=== PATIENT | female | born 1990 | race Asian ===

== ENCOUNTER 2018-08-29 19:01 | Inpatient (IN) | payer OTHER ==
[~2018-08-29] VITALS: Ht 149.9 cm; Wt 54.0 kg
--- OUTSIDE RECORDS SUMMARY | 2018-08-29 19:06 | XMS REPORT ---
Author Author JOHN PENNINGTON [facility] Address [address] [place] [address] Care Team Providers Care Public Administration Teacher Name Role Phone JOHN PENNIGNTON Unavailable PROBLEMS No Known Problems ALLERGIES No Known Allergies ENCOUNTERS Encounter Location Date Diagnosis [facility] [id number] [place] [phone] Feb, [facility] [id number] [place] [phone] Feb, care in first trimester Z34.91 ; 8 weeks gestation of Z3A.08 and First trimester bleeding O20.9 [facility] [id number] [place] [phone] Feb, [facility] [id number] [place] [phone] Feb, [facility] [id number] [place] [phone] Feb, Vomiting during O21.9 [facility] [id number] [place] [phone] Feb, [facility] [id number] [place] [phone] Feb, [facility] [id number] [place] [phone] Feb, [facility] [id number] [place] [phone] Feb, [facility] [address] [address] Jan, [facility] [id number] [address] Jan, [facility] [address] [facility] [id number] [place] [address] Jan, [facility] [address] [facility] [id number] [place] [address] Jan, Vomiting during O21.9 IMMUNIZATIONS Vaccine Route Administration Date Status PHENERGAN 50MG/ML IV Intravenous Feb 11, 2018 Administered SOCIAL HISTORY Never Assessed REASON FOR VISIT Nausea/vomiting--tcuppettRN PLAN OF CARE Activity Details Follow Up 2 - 3 Days Reason:scheduled f/u w Bryce Pending Test UA LONG DIP (IN HOUSE) VITAL SIGNS Height 60 in 2018-02-11 Weight 107.4 lbs 2018-02-11 Temperature 97.6 degrees Fahrenheit 2018-02-11 Heart Rate 72 bpm 2018-02-11 Respiratory Rate 18 2018-02-11 BMI 20.97 kg/m2 2018-02-11 Blood pressure systolic 100 mmHg 2018-02-11 Blood pressure diastolic 68 mmHg 2018-02-11 MEDICATIONS Unknown Medications RESULTS No Results PROCEDURES Procedure Date Ordered Result Body Site URINALYSIS, AUTO, W/O SCOPE Feb 11, 2018 URINE CULTURE/COLONY COUNT Feb 11, 2018 OB US < 14 WKS, SINGLE FETUS Feb 11, 2018 THER/PROPH/DIAG INJ, IV PUSH Feb 11, 2018 HYDRATION IV INFUSION, INIT Feb 11, 2018 THER/PROPH/DIAG INJ, SC/IM Feb 11, 2018 PHENERGAN 50MG/ML Feb 11, 2018 INSTRUCTIONS MEDICATIONS ADMINISTERED No Known Medications MEDICAL (GENERAL) HISTORY Type Description Date Surgical History No know Surgical history Hospitalization History Low blood pressure 2012
--- OUTSIDE RECORDS SUMMARY | 2018-08-29 19:06 | XMS REPORT ---
Author Author JEN AKIRA [facility] Address [address] [place] [address] Care Team Providers Care Healthcare Administrative Assistant Name Role Phone JENTONI HERNANDEZHANY Unavailable PROBLEMS No Known Problems ALLERGIES No Information ENCOUNTERS Encounter Location Date Diagnosis [facility] [id number] [place] [phone] Feb, [facility] [id number] [place] [phone] Feb, [facility] [id number] [place] [phone] Feb, [facility] [id number] [place] [phone] Feb, [facility] [id number] [place] [phone] Feb, [facility] [id number] [place] [phone] Feb, [facility] [id number] [place] [phone] Jan, [facility] [id number] [place] [phone] Jan, [facility] [address] [place] [phone] Jan, [facility] [id number] [place] [phone] Jan, Vomiting during O21.9 IMMUNIZATIONS No Known Immunizations SOCIAL HISTORY Never Assessed REASON FOR VISIT OB Questions PLAN OF CARE VITAL SIGNS MEDICATIONS Unknown Medications RESULTS No Results PROCEDURES No Known procedures INSTRUCTIONS MEDICATIONS ADMINISTERED No Known Medications MEDICAL (GENERAL) HISTORY Type Description Date Surgical History No know Surgical history Hospitalization History Low blood pressure 2012
--- OUTSIDE RECORDS SUMMARY | 2018-08-29 19:06 | XMS REPORT ---
Author Author JEN AKIRA [facility] Address [address] [place] [address] Care Team Providers Care Air Cargo Specialist Name Role Phone JEN AKIRA Unavailable PROBLEMS No Known Problems ALLERGIES No Known Allergies ENCOUNTERS Encounter Location Date Diagnosis [facility] [id number] [place] [phone] Feb, [facility] [id number] [place] [address] Feb, care in first trimester Z34.91 ; 8 weeks gestation of Z3A.08 and First trimester bleeding O20.9 [facility] [id number] [place] [phone] Feb, [facility] [id number] [place] [phone] Feb, [facility] [id number] [place] [phone] Feb, Vomiting during O21.9 [facility] [id number] [place] [phone] Feb, [facility] [id number] [place] [phone] Feb, [facility] [id number] [place] [phone] Feb, [facility] [id number] [place] [phone] Feb, [facility] [address] [place] [phone] Jan, [facility] [id number] [address] Jan, [facility] [address] [facility] [id number] [address] Jan, [facility] [address] [facility] [id number] [address] Jan, Vomiting during O21.9 IMMUNIZATIONS No Known Immunizations SOCIAL HISTORY Never Assessed REASON FOR VISIT n/v followup. ob urine dip in first trimester--tcuppettRN PLAN OF CARE Activity Details Follow Up 4 Weeks Reason: Pending Test GC/CHLAM PROBE (STATE) Pending Test SYPHILIS (STATE) Pending Test HIV (STATE) Pending Test HEP B SURFACE ANTIGEN (STATE) Pending Test CBC Pending Test BLOOD TPYE/RH FACTOR Pending Test ANTIBODY SCREEN Pending Test TSH Pending Test RUBELLA IMMUNE STATUS Pending Test CULTURE, URINE Pending Test CULTURE, GENITAL Pending Test PAP REFLEX TO HPV IF ASCUS VITAL SIGNS Height 60 in 2018-02-15 Weight 107.3 lbs 2018-02-15 Temperature 97.9 degrees Fahrenheit 2018-02-15 Heart Rate 70 bpm 2018-02-15 Respiratory Rate 16 2018-02-15 BMI 20.956 kg/m2 2018-02-15 Blood pressure systolic 106 mmHg 2018-02-15 Blood pressure diastolic 80 mmHg 2018-02-15 MEDICATIONS Medication Instructions Dosage Frequency Start Date End Date Duration Status Promethazine HCl 25 MG Orally every 4 hrs 1 tablet as needed 4h Feb, Active Vitamin 27-0.8 MG Orally Once a day 1 tablet 24h 30 day(s) Active RESULTS Name Result Date Reference Range TRICHOMONAS (IN HOUSE) 2018-02-15 TRICHOMONAS negative Control + Lot # [id number] Exp date 10/2018 UA LONG DIP (IN HOUSE) 2018-02-15 Lot # Exp date Clarity yellow Color sl cloudy Odor slight GLU neg JOSH 1+ KET 4+ SG 1.025 BLO negative pH 6.5 Protein trace URO 0.2 NIT negative DORA trace Lot # Exp date BACTERIAL VAGINOSIS (IN HOUSE) 2018-02-15 RESULTS Negative Control + Lot # [id number] Exp date 09/2018 PROCEDURES Procedure Date Ordered Result Body Site BLOOD TYPING, ABO Feb 15, 2018 BLOOD TYPING, RH (D) Feb 15, 2018 COMPLETE CBC W/AUTO DIFF WBC Feb 15, 2018 Bacterial Vaginosis In House Feb 15, 2018 TRICHOMONAS ASSAY W/OPTIC Feb 15, 2018 RBC ANTIBODY SCREEN Feb 15, 2018 SPECIMEN HANDLING Feb 15, 2018 ASSAY THYROID STIM HORMONE Feb 15, 2018 RUBELLA ANTIBODY Feb 15, 2018 No Charge Feb 15, 2018 URINALYSIS, AUTO, W/O SCOPE Feb 15, 2018 URINE CULTURE/COLONY COUNT Feb 15, 2018 CULTURE, BACTERIA, OTHER Feb 15, 2018 VENIPUNCT, ROUTINE* Feb 15, 2018 INSTRUCTIONS MEDICATIONS ADMINISTERED No Known Medications MEDICAL (GENERAL) HISTORY Type Description Date Surgical History No know Surgical history Hospitalization History Low blood pressure 2012
--- OUTSIDE RECORDS SUMMARY | 2018-08-29 19:06 | XMS REPORT ---
Author Author JEN AKIRA [facility] Address [address] [place] [address] Care Team Providers Care Film Producer Name Role Phone JENTONIAKIRA Unavailable PROBLEMS No Known Problems ALLERGIES No Information ENCOUNTERS Encounter Location Date Diagnosis [facility] [id number] [place] [phone] Feb, [facility] [id number] [place] [phone] Feb, [facility] [id number] [place] [phone] Feb, [facility] [id number] [place] [phone] Feb, [facility] [id number] [place] [phone] Feb, [facility] [id number] [place] [phone] Feb, [facility] [id number] [place] [phone] Jan, [facility] [id number] [place] [phone] Jan, [facility] [address] [place] [phone] Jan, [facility] [id number] [place] [phone] Jan, Vomiting during O21.9 IMMUNIZATIONS No Known Immunizations SOCIAL HISTORY Never Assessed REASON FOR VISIT OBHX PLAN OF CARE VITAL SIGNS MEDICATIONS Unknown Medications RESULTS No Results PROCEDURES No Known procedures INSTRUCTIONS MEDICATIONS ADMINISTERED No Known Medications MEDICAL (GENERAL) HISTORY Type Description Date Surgical History No know Surgical history Hospitalization History Low blood pressure 2012
--- OUTSIDE RECORDS SUMMARY | 2018-08-29 19:06 | XMS REPORT ---
Author Author JOHN PENNINGTON [facility] Address [address] [place] [address] Care Team Providers Care Laboratory Worker Name Role Phone JOHN PENNINGTON Unavailable PROBLEMS No Known Problems ALLERGIES No Information ENCOUNTERS Encounter Location Date Diagnosis [facility] [id number] [place] [phone] Feb, [facility] [id number] [place] [phone] Feb, [facility] [id number] [place] [phone] Feb, [facility] [id number] [place] [phone] Feb, [facility] [id number] [place] [phone] Feb, Vomiting during O21.9 [facility] [id number] [place] [phone] Feb, [facility] [id number] [place] [phone] Feb, [facility] [id number] [place] [phone] Feb, [facility] [id number] [place] [phone] Feb, [facility] [id number] [place] [phone] Jan, [facility] [id number] [place] [phone] Jan, [facility] [address] [facility] [id number] [place] [address] Jan, [facility] [address] [facility] [id number] [place] [address] Jan, Vomiting during O21.9 IMMUNIZATIONS No Known Immunizations SOCIAL HISTORY Never Assessed REASON FOR VISIT After Hours Clinical Advice PLAN OF CARE VITAL SIGNS MEDICATIONS Unknown Medications RESULTS No Results PROCEDURES No Known procedures INSTRUCTIONS MEDICATIONS ADMINISTERED No Known Medications MEDICAL (GENERAL) HISTORY Type Description Date Surgical History No know Surgical history Hospitalization History Low blood pressure 2012
--- OUTSIDE RECORDS SUMMARY | 2018-08-29 19:06 | XMS REPORT ---
Author Author JEN AKIRA [facility] Address [address] [place] [address] Care Team Providers Care Fuel Truck Driver Name Role Phone JEN AKIRA Unavailable PROBLEMS No Known Problems ALLERGIES No Information ENCOUNTERS Encounter Location Date Diagnosis [facility] [id number] [place] [phone] Feb, [facility] [id number] [place] [phone] Feb, [facility] [id number] [place] [phone] Feb, [facility] [id number] [place] [phone] Feb, Vomiting during O21.9 [facility] [id number] [place] [phone] Feb, [facility] [id number] [place] [phone] Feb, [facility] [id number] [place] [phone] Feb, [facility] [id number] [place] [phone] Feb, [facility] [id number] [place] [phone] Jan, [facility] [id number] [place] [phone] Jan, [facility] [id number] [place] [phone] Jan, [facility] [address] [facility] [id number] [place] [address] Jan, Vomiting during O21.9 IMMUNIZATIONS No Known Immunizations SOCIAL HISTORY Never Assessed REASON FOR VISIT PLAN OF CARE VITAL SIGNS MEDICATIONS Medication Instructions Dosage Frequency Start Date End Date Duration Status Promethazine HCl 25 MG Orally every 4 hrs 1 tablet as needed 4h Feb, Active RESULTS No Results PROCEDURES No Known procedures INSTRUCTIONS MEDICATIONS ADMINISTERED No Known Medications MEDICAL (GENERAL) HISTORY Type Description Date Surgical History No know Surgical history Hospitalization History Low blood pressure 2012
--- OUTSIDE RECORDS SUMMARY | 2018-08-29 19:06 | XMS REPORT ---
Author Author RONEL STROUD Organization [facility] Address [address] [place] [address] Care Team Providers Care Medicine Technologist Name Role Phone RONEL STROUD Unavailable PROBLEMS No Known Problems ALLERGIES No Information ENCOUNTERS Encounter Location Date Diagnosis [facility] [id number] [place] [phone] Feb, [facility] [address] [phone] Feb, [facility] [address] [phone] Feb, [facility] [id number] [place] [phone] Feb, [facility] [id number] [place] [phone] Feb, [facility] [id number] [place] [phone] Feb, [facility] [id number] [place] [phone] Jan, [facility] [id number] [place] [phone] Jan, [facility] [id number] [place] [phone] Jan, [facility] [id number] [place] [phone] Jan, Vomiting during O21.9 IMMUNIZATIONS No Known Immunizations SOCIAL HISTORY Never Assessed REASON FOR VISIT work release PLAN OF CARE VITAL SIGNS MEDICATIONS Unknown Medications RESULTS No Results PROCEDURES No Known procedures INSTRUCTIONS MEDICATIONS ADMINISTERED No Known Medications MEDICAL (GENERAL) HISTORY Type Description Date Surgical History No know Surgical history Hospitalization History Low blood pressure 2012
--- OUTSIDE RECORDS SUMMARY | 2018-08-29 19:06 | XMS REPORT ---
Author Author RONEL STROUD Organization [facility] Address [address] [place] [address] Care Team Providers Care Academic Dean Name Role Phone RONEL STROUD Unavailable PROBLEMS No Known Problems ALLERGIES No Information ENCOUNTERS Encounter Location Date Diagnosis [facility] [id number] [place] [phone] Feb, [facility] [address] [phone] Feb, [facility] [address] [phone] Feb, [facility] [id number] [place] [phone] Feb, [facility] [id number] [place] [phone] Feb, [facility] [id number] [place] [phone] Feb, [facility] [id number] [place] [phone] Jan, [facility] [id number] [place] [phone] Jan, [facility] [id number] [place] [phone] Jan, [facility] [id number] [place] [phone] Jan, Vomiting during O21.9 IMMUNIZATIONS No Known Immunizations SOCIAL HISTORY Never Assessed REASON FOR VISIT paperwork PLAN OF CARE VITAL SIGNS MEDICATIONS Unknown Medications RESULTS No Results PROCEDURES No Known procedures INSTRUCTIONS MEDICATIONS ADMINISTERED No Known Medications MEDICAL (GENERAL) HISTORY Type Description Date Surgical History No know Surgical history Hospitalization History Low blood pressure 2012
--- OUTSIDE RECORDS SUMMARY | 2018-08-29 19:07 | XMS REPORT | Continuity of Care Document ---
Author Organization Unknown Address Unknown Allergies There is no data. Medications There is no data. Problems There is no data. Procedures There is no data. Results Test Result Range CMP - 02/02/18 12:30 GLUCOSE 88 mg/dL 65-99 UREA NITROGEN (BUN) 10 mg/dL 7-25 CREATININE 0.50 mg/dL 0.50-1.10 eGFR NON-AFR. [place] 133 mL/min/1.73m2 > OR=60 eGFR 154 mL/min/1.73m2 > OR=60 BUN/CREATININE RATIO NOT APPLICABLE (calc) 6-22 SODIUM 136 mmol/L 135-146 POTASSIUM 3.9 mmol/L 3.5-5.3 CHLORIDE 102 mmol/L 98-110 CARBON DIOXIDE 23 mmol/L 20-32 CALCIUM 9.3 mg/dL 8.6-10.2 PROTEIN, TOTAL 7.9 g/dL 6.1-8.1 ALBUMIN 4.4 g/dL 3.6-5.1 GLOBULIN 3.5 g/dL (calc) 1.9-3.7 ALBUMIN/GLOBULIN RATIO 1.3 (calc) 1.0-2.5 BILIRUBIN, TOTAL 0.3 mg/dL 0.2-1.2 ALKALINE PHOSPHATASE 83 U/L 33-115 AST 18 U/L 10-30 ALT 15 U/L 6-29 HCG, QUANTITATIVE - 02/02/18 12:30 [place] [address] mIU/mL NRG CULTURE, URINE - 02/11/18 15:28 CULTURE, URINE, ROUTINE SEE NOTE NRG CULTURE, GENITAL - 02/15/18 14:30 CULTURE, GENITAL SEE NOTE NRG SUREPATH PAP RFX HPV mRNA E6/E7 - 02/15/18 14:30 CLINICAL INFORMATION: NRG LMP: 11/15/2017 NRG PREV. PAP: NEVER NRG PREV. BX: NRG SOURCE: Cervix NRG STATEMENT OF ADEQUACY: NRG INTERPRETATION/RESULT: NRG PREFORMS LAMINATOR: NRG COMMENT NRG GLUCOSE ELIOT 1 HOUR - 06/22/18 15:30 GLUCOSE, POSTPRANDIAL/ 1 HOUR 100 mg/dL See Note: CBC - 06/22/18 15:30 WHITE BLOOD CELL COUNT 12.6 Thousand/uL 3.8-10.8 RED BLOOD CELL COUNT 3.45 Million/uL 3.80-5.10 HEMOGLOBIN 9.3 g/dL 11.7-15.5 HEMATOCRIT 28.2 % 35.0-45.0 MCV 81.7 fL 80.0-100.0 MCH 27.0 pg 27.0-33.0 MCHC 33.0 g/dL 32.0-36.0 RDW 13.0 % 11.0-15.0 PLATELET COUNT 407 Thousand/uL 140-400 MPV 9.5 fL 7.5-12.5 ABSOLUTE NEUTROPHILS 9841 cells/uL 9104-1573 ABSOLUTE LYMPHOCYTES 1928 cells/uL 850-3900 ABSOLUTE MONOCYTES 706 cells/uL 200-950 ABSOLUTE EOSINOPHILS 88 cells/uL 15-500 ABSOLUTE BASOPHILS 38 cells/uL 0-200 NEUTROPHILS 78.1 % NRG LYMPHOCYTES 15.3 % NRG MONOCYTES 5.6 % NRG EOSINOPHILS 0.7 % NRG BASOPHILS 0.3 % NRG BILE ACIDS, FRACTIONATED LCMS - 07/27/18 09:42 CHOLIC ACID 1.7 umol/L < OR=1.8 DEOXYCHOLIC ACID <0.5 umol/L < OR=2.4 CHENODEOXYCHOLIC ACID 0.7 umol/L < OR=3.1 TOTAL BILE ACIDS 2.4 umol/L < OR=6.8 LDH - 08/05/18 09:19 LD 127 U/L 100-200 GGT - 08/05/18 09:19 GGT 35 U/L 3-40 URIC ACID, SERUM - 08/05/18 09:19 URIC ACID 4.0 mg/dL 2.5-7.0 CBC - 08/05/18 09:19 WHITE BLOOD CELL COUNT 11.5 Thousand/uL 3.8-10.8 RED BLOOD CELL COUNT 3.85 Million/uL 3.80-5.10 HEMOGLOBIN 10.3 g/dL 11.7-15.5 HEMATOCRIT 32.0 % 35.0-45.0 MCV 83.1 fL 80.0-100.0 MCH 26.8 pg 27.0-33.0 MCHC 32.2 g/dL 32.0-36.0 RDW 18.1 % 11.0-15.0 PLATELET COUNT 382 Thousand/uL 140-400 MPV 9.7 fL 7.5-12.5 ABSOLUTE NEUTROPHILS 8763 cells/uL 9562-1712 ABSOLUTE LYMPHOCYTES 1967 cells/uL 850-3900 ABSOLUTE MONOCYTES 633 cells/uL 200-950 ABSOLUTE EOSINOPHILS 92 cells/uL 15-500 ABSOLUTE BASOPHILS 46 cells/uL 0-200 NEUTROPHILS 76.2 % NRG LYMPHOCYTES 17.1 % NRG MONOCYTES 5.5 % NRG EOSINOPHILS 0.8 % NRG BASOPHILS 0.4 % NRG BILE ACIDS, FRACTIONATED LCMS - 08/05/18 09:19 CHOLIC ACID 6.1 umol/L < OR=1.8 DEOXYCHOLIC ACID 0.6 umol/L < OR=2.4 CHENODEOXYCHOLIC ACID 1.5 umol/L < OR=3.1 TOTAL BILE ACIDS 8.2 umol/L < OR=6.8 CMP - 08/17/18 09:09 GLUCOSE 80 mg/dL 65-99 UREA NITROGEN (BUN) 6 mg/dL 7-25 CREATININE 0.46 mg/dL 0.50-1.10 eGFR NON-AFR. [place] 135 mL/min/1.73m2 > OR=60 eGFR 157 mL/min/1.73m2 > OR=60 BUN/CREATININE RATIO 13 (calc) 6-22 SODIUM 140 mmol/L 135-146 POTASSIUM 4.1 mmol/L 3.5-5.3 CHLORIDE 104 mmol/L 98-110 CARBON DIOXIDE 23 mmol/L 20-32 CALCIUM 8.9 mg/dL 8.6-10.2 PROTEIN, TOTAL 6.9 g/dL 6.1-8.1 ALBUMIN 3.6 g/dL 3.6-5.1 GLOBULIN 3.3 g/dL (calc) 1.9-3.7 ALBUMIN/GLOBULIN RATIO 1.1 (calc) 1.0-2.5 BILIRUBIN, TOTAL 0.2 mg/dL 0.2-1.2 ALKALINE PHOSPHATASE 190 U/L 33-115 AST 25 U/L 10-30 ALT 49 U/L 6-29 BILE ACIDS, FRACTIONATED LCMS - 08/17/18 09:09 CHOLIC ACID 0.5 umol/L < OR=1.8 DEOXYCHOLIC ACID <0.5 umol/L < OR=2.4 CHENODEOXYCHOLIC ACID 0.6 umol/L < OR=3.1 TOTAL BILE ACIDS <1.5 umol/L < OR=6.8 CULTURE, GROUP B STREP (VAGINAL) - 08/24/18 12:09 STREPTOCOCCUS, GROUP B CULTURE SEE NOTE NRG Encounters ACCT No. Visit Date/Time Discharge Status Pt. Type Provider Facility Loc./Unit Complaint [id number] 08/25/2018 15:00:00 08/25/2018 23:59:59 [facility] Outpatient KENDALL YOUNG [facility] [id number] 08/24/2018 10:20:00 Document Registration [id number] 08/17/2018 10:40:00 Document Registration [id number] 08/05/2018 09:20:00 Document Registration [id number] 07/27/2018 09:00:00 Document Registration [id number] 06/22/2018 14:00:00 Document Registration [id number] 02/15/2018 13:40:00 Document Registration [id number] 02/11/2018 13:00:00 Document Registration [id number] 02/02/2018 11:40:00 Document Registration
--- OUTSIDE RECORDS SUMMARY | 2018-08-29 19:07 | XMS REPORT ---
Author Author RONEL STROUD Organization [facility] Address [address] [place] [address] Care Team Providers Care Boilers And Pressure Vessels Inspector Name Role Phone RONEL STROUD Unavailable PROBLEMS No Known Problems ALLERGIES No Information ENCOUNTERS Encounter Location Date Diagnosis [facility] [id number] [place] [phone] Jan, [facility] [id number] [place] [phone] Jan, [facility] [id number] [place] [phone] Jan, [facility] [id number] [place] [phone] Jan, Vomiting during O21.9 IMMUNIZATIONS No Known Immunizations SOCIAL HISTORY Never Assessed REASON FOR VISIT Update Demographics - Personal Info PLAN OF CARE VITAL SIGNS MEDICATIONS Unknown Medications RESULTS No Results PROCEDURES No Known procedures INSTRUCTIONS MEDICATIONS ADMINISTERED No Known Medications
--- OUTSIDE RECORDS SUMMARY | 2018-08-29 19:07 | XMS REPORT ---
Author Author RONEL STROUD Organization [facility] Address [address] [place] [address] Care Team Providers Care Public Health Sanitarian Name Role Phone RONEL STROUD Unavailable PROBLEMS No Known Problems ALLERGIES No Known Allergies ENCOUNTERS Encounter Location Date Diagnosis [facility] [address] [facility] [id number] [place] [phone] Jan, Vomiting during O21.9 IMMUNIZATIONS No Known Immunizations SOCIAL HISTORY Never Assessed REASON FOR VISIT nausea/vomiting, pt found out a week ago she is . pt is nausea and week and can not keep food down. Has been drinking 7up, and milk. NO water. pt states she is constipated as well. Cshepherd, pt states can't drink water due to the s tricia of the chemicals in it. PLAN OF CARE Activity Details Follow Up prn Reason: Pending Test CMP Pending Test HCG, QUANTITATIVE VITAL SIGNS Height 60 in 2018-02-02 Weight 110.7 lbs 2018-02-02 Temperature 99.4 degrees Fahrenheit 2018-02-02 Heart Rate 98 bpm 2018-02-02 Respiratory Rate 22 2018-02-02 BMI 21.62 kg/m2 2018-02-02 Blood pressure systolic 115 mmHg 2018-02-02 Blood pressure diastolic 72 mmHg 2018-02-02 MEDICATIONS No Known Medications RESULTS No Results PROCEDURES Procedure Date Ordered Result Body Site CHORIONIC GONADOTROPIN TEST Feb 02, 2018 VENIPUNCT, ROUTINE* Feb 02, 2018 COMPREHEN METABOLIC PANEL Feb 02, 2018 INSTRUCTIONS MEDICATIONS ADMINISTERED No Known Medications
--- OUTSIDE RECORDS SUMMARY | 2018-08-29 19:07 | XMS REPORT ---
Author Author RONEL STROUD Organization [facility] Address [address] [place] [address] Care Team Providers Care Song Plugger Name Role Phone RONEL STROUD Unavailable PROBLEMS No Known Problems ALLERGIES No Information ENCOUNTERS Encounter Location Date Diagnosis [facility] [id number] [place] [phone] Jan, [facility] [id number] [place] [phone] Jan, [facility] [id number] [place] [phone] Jan, [facility] [id number] [place] [phone] Jan, Vomiting during O21.9 IMMUNIZATIONS No Known Immunizations SOCIAL HISTORY Never Assessed REASON FOR VISIT Lab results PLAN OF CARE VITAL SIGNS MEDICATIONS Unknown Medications RESULTS No Results PROCEDURES No Known procedures INSTRUCTIONS MEDICATIONS ADMINISTERED No Known Medications
--- OUTSIDE RECORDS SUMMARY | 2018-08-29 19:07 | XMS REPORT ---
Author Author [facility] [place] [facility] Address [address] [place] [address] Care Team Providers Care Entertainment Musician Name Role Phone AKIRA LI Unavailable PROBLEMS No Known Problems ALLERGIES No Known Allergies ENCOUNTERS Encounter Location Date Diagnosis [facility] [id number] [address] Feb, [facility] [id number] [place] [phone] Feb, [facility] [id number] [place] [phone] Feb, [facility] [id number] [place] [phone] Jan, [facility] [id number] [place] [phone] Jan, [facility] [id number] [place] [phone] Jan, [facility] [id number] [address] Jan, Vomiting during O21.9 IMMUNIZATIONS No Known Immunizations SOCIAL HISTORY Never Assessed REASON FOR VISIT PLAN OF CARE VITAL SIGNS MEDICATIONS Unknown Medications RESULTS No Results PROCEDURES No Known procedures INSTRUCTIONS MEDICATIONS ADMINISTERED No Known Medications MEDICAL (GENERAL) HISTORY Type Description Date Surgical History No know Surgical history Hospitalization History Low blood pressure 2012
--- NOTE | 2018-08-29 19:10 | NUR ---
EMILIO WEIR presented to unit via AMBULATORY from ED, accompanied by S/O, with c/o INDUCTION. EMILIO WEIR weighed, gowned, voided, and to bed. EFHM and TOCO applied, VS taken. EMILIO WEIR oriented to bed controls, call light, TV, heat, and A/C controls. PT UP CHANGING AND SUPPLYING U/A ASSESSMENTS TO FOLLOW PER REBECCA MCGREGOR.
[2018-08-29 19:25] VITALS: BP 119/81
[2018-08-29] MEDS ORDERED: MINERAL OIL CONCENTRATE 99.9% 15 ML UDC TOP PRN (19:30)
--- NOTE | 2018-08-29 19:40 | NUR ---
Dr. Wu called regarding IOL. Orders received.
[2018-08-29] MEDS ORDERED: NS IV 1000 ML 1,000 ML ONE (19:47)
[2018-08-29] MEDS ORDERED: D5 LR IV SOLUTION 1,000 ML IV ONE (19:47)
[2018-08-29] MEDS: D5 LR IV SOLUTION 1,000 ML IV SCH (19:50)
[2018-08-29] MEDS ORDERED: LACTATED RINGERS 1,000 ML IV SCH (19:51)
[2018-08-29 19:52] LABS: BASOPHILS % (AUTO) 0 % (0-10); EOSINOPHILS # (AUTO) 0.1 10^3/uL (0.0-0.3); EOSINOPHILS % (AUTO) 1 % (0-10); HEMATOCRIT 33 % (35-52); HEMOGLOBIN 10.8 G/DL (11.5-16.0); LYMPHOCYTES # (AUTO) 2.5 X 10^3 (1.0-4.0); LYMPHOCYTES % (AUTO) 17 % (12-44); MEAN CORPUSCULAR HEMOGLOBIN 27 PG (25-34); MEAN CORPUSCULAR HGB CONC 33 G/DL (32-36); MEAN CORPUSCULAR VOLUME 83 FL (80-99); MEAN PLATELET VOLUME 8.7 FL (7.4-10.4); MONOCYTES % (AUTO) 7 % (0-12); NEUTROPHILS # (AUTO) 10.9 X 10^3 (1.8-7.8); NEUTROPHILS % (AUTO) 75 % (42-75); PLATELET COUNT 389 10^3/uL (130-400); RED CELL DISTRIBUTION WIDTH 18.8 % (10.0-14.5); WHITE BLOOD COUNT 14.4 10^3/uL (4.3-11.0)
[2018-08-29] MEDS ORDERED: TERBUTALINE INJ 1 MG/ML (BRETHINE) AMP SC PRN (20:00)
[2018-08-29 20:07] LABS: BILIRUBIN,URINE NEGATIVE (NEGATIVE); CLARITY,URINE CLEAR; COLOR,URINE YELLOW; GLUCOSE, URINE (UA) NEGATIVE (NEGATIVE); KETONES,URINE NEGATIVE (NEGATIVE); LEUKOCYTE ESTERASE ,URINE NEGATIVE (NEGATIVE); NITRITE,URINE NEGATIVE (NEGATIVE); PH,URINE 6.5 (5-9); PROTEIN,URINE NEGATIVE (NEGATIVE); UROBILINOGEN,URINE NORMAL (NORMAL)
[2018-08-29 20:08] LABS: ALANINE AMINOTRANSFERASE 48 U/L (0-55); ALBUMIN 3.8 GM/DL (3.2-4.5); ALKALINE PHOSPHATASE 182 U/L (40-136); BILIRUBIN,TOTAL 0.2 MG/DL (0.1-1.0); BUN/CREATININE RATIO 13; CALCIUM 9.7 MG/DL (8.5-10.1); CARBON DIOXIDE 18 MMOL/L (21-32); CHLORIDE 105 MMOL/L (98-107); CREATININE SERUM 0.62 MG/DL (0.60-1.30); GFR ESTIMATED > 60; GLUCOSE 109 MG/DL (70-105); POTASSIUM 3.5 MMOL/L (3.6-5.0); SODIUM 136 MMOL/L (135-145)
[2018-08-29 20:16] LABS: BACTERIA,URINE FEW /HPF; WBC,URINE RARE /HPF
[2018-08-29 21:35] VITALS: BP 114/70
[2018-08-29] MEDS: MISOPROSTOL 100 MCG (CYTOTEC) TAB PV SCH (21:45)
[2018-08-29] MEDS ORDERED: PREN-142 PO (21:58)
[2018-08-29] MEDS ORDERED: FERR-84 PO (21:59)
[2018-08-29] MEDS ORDERED: URSO300C3 PO (22:00)
[2018-08-29] MEDS: CATHETER FLUSH 10 ML SYR IV SCH (22:00)
[2018-08-29 22:36] VITALS: BP 110/67
[2018-08-29 23:38] VITALS: BP 100/56
[2018-08-30] VITALS (55 sets, daily range): BP systolic 102–154; BP diastolic 55–91
[2018-08-30] MEDS: MISOPROSTOL 100 MCG (CYTOTEC) TAB PV SCH (01:49)
[2018-08-30] MEDS: D5 LR IV SOLUTION 1,000 ML IV SCH ×3 (02:49→17:15)
--- NOTE | 2018-08-30 07:00 | NUR ---
REPORT FROM MEET MCGREGOR.
--- NOTE | 2018-08-30 08:45 | History & Physical-OB ---
OB - Chief Complaint & HPI Date/Time Date of Admission: Date of Admission: Aug 29, 2018 at 19:01 Date seen by a Provider: Aug 30, 2018 Time Seen by a Provider: 08:30 Chief Complaint/History OB-Reason for Admission/Chief: Obstetrical Complication Hx : 1 Hx Para: 0 Expected Date of Delivery: Sep 27, 2018 Gestational Age in Weeks: 36 Gestational Age in Days: 0 Indication for induction: medical complication (intrahepatic cholestasis) History of Labs O+, antibody neg, RI. HIV/HepB/RPR NR. GC/chlamydia neg. Glucola nml. GBS neg. Allergies and Home Medications Allergies Coded Allergies: No Known Drug Allergies (Unverified , 08/29/18) Home Medications Ferrous Sulfate 325 Mg Tablet, 325 MG PO DAILY, (Reported) Vit No.124/Iron/FA 1 Each Tablet, 1 EACH PO DAILY, (Reported) Ursodiol 300 Mg Capsule, 300 MG PO TID, (Reported) Patient Home Medication List Home Medication List Reviewed: Yes OB - History Hx of Present Care: Yes Ultrasounds: Normal mid trimester US Obstetrical Complications: Other (intrahepatic cholestasis) Medical Complications: None Information Induced Hypertension: No Maternal Gestational Diabetes: No Hemorrhage: No Obstetrical History Hx : 1 Hx Para: 0 Patient Past Medical History PMHx: Denies Social History/Family History HIV/AIDS: No Recent Infectious Disease Expo: No Sexually Transmitted Disease: No Alcohol Use: Denies Use Recreational Drug Use: No Smoking Cessation: Never smoker Immunizations Tetanus Booster (TDap): Less than 5yrs Rubella: immune RPR/VDRL: Negative GBS Status: Negative HBsAG: Negative OB - Admission Exam Physical Exam Vitals: Vital Signs 08/30/18 08/30/18 04:35 05:35 Temp 98.1 Pulse 81 Resp 16 B/P (MAP) 108/67 (81) O2 Delivery Room Air HEENT: NCAT Abdomen: Non tender Extremities: Normal Cervical Dilatation: 4cm Effacement: 0% Station: -3 Membranes: Intact Heart Rate: 150's Accelerations: Accelerations Present Short Term Variability: Present Intermediate Variability: Average (6-25) Contractions on Admission: None Beal Scoring Tool (Modified) Dilation (cm): 1-2cm (1) Effacement (%): 0-30% (0) Descent/Station: -3 (0) Cervix Consistency: Soft (2) Cervix Position: Middle/Mid-Position (1) Subtract 1 point for: Nulliparity (-1) Beal Score: 3 Labs Laboratory Tests Test 08/29/18 19:10 08/29/18 19:30 08/29/18 19:40 Range/Units Urine Color YELLOW Urine Clarity CLEAR Urine pH 6.5 5-9 Urine Specific [place] 1.010 L 1.016-1.022 Urine Protein NEGATIVE NEGATIVE Urine Glucose (UA) NEGATIVE NEGATIVE Urine Ketones NEGATIVE NEGATIVE Urine Nitrite NEGATIVE NEGATIVE Urine Bilirubin NEGATIVE NEGATIVE Urine Urobilinogen NORMAL NORMAL MG/DL Urine Leukocyte Esterase NEGATIVE NEGATIVE Urine RBC (Auto) NEGATIVE NEGATIVE Urine RBC NONE /HPF Urine WBC RARE /HPF Urine Squamous Epithelial Cells 2-5 /HPF Urine Crystals NONE /LPF Urine Bacteria FEW H /HPF Urine Casts NONE /LPF Urine Mucus SMALL H /LPF Urine Culture Indicated NO White Blood Count 14.4 H 4.3-11.0 10^3/uL Red Blood Count 3.96 L 4.35-5.85 10^6/uL Hemoglobin 10.8 L 11.5-16.0 G/DL Hematocrit 33 L 35-52 % Mean Corpuscular Volume 83 80-99 FL Mean Corpuscular Hemoglobin 27 25-34 PG Mean Corpuscular Hemoglobin Concent 33 32-36 G/DL Red Cell Distribution Width 18.8 H 10.0-14.5 % Platelet Count 389 130-400 10^3/uL Mean Platelet Volume 8.7 7.4-10.4 FL Neutrophils (%) (Auto) 75 42-75 % Lymphocytes (%) (Auto) 17 12-44 % Monocytes (%) (Auto) 7 0-12 % Eosinophils (%) (Auto) 1 0-10 % Basophils (%) (Auto) 0 0-10 % Neutrophils # (Auto) 10.9 H 1.8-7.8 X 10^3 Lymphocytes # (Auto) 2.5 1.0-4.0 X 10^3 Monocytes # (Auto) 1.0 0.0-1.0 X 10^3 Eosinophils # (Auto) 0.1 0.0-0.3 10^3/uL Basophils # (Auto) 0.0 0.0-0.1 10^3/uL Sodium Level 136 135-145 MMOL/L Potassium Level 3.5 L 3.6-5.0 MMOL/L Chloride Level 105 98-107 MMOL/L Carbon Dioxide Level 18 L 21-32 MMOL/L Anion Gap 13 5-14 MMOL/L Blood Urea Nitrogen 8 7-18 MG/DL Creatinine 0.62 0.60-1.30 MG/DL Estimat Glomerular Filtration Rate > 60 BUN/Creatinine Ratio 13 Glucose Level 109 H 70-105 MG/DL Calcium Level 9.7 8.5-10.1 MG/DL Corrected Calcium 9.9 8.5-10.1 MG/DL Total Bilirubin 0.2 0.1-1.0 MG/DL Aspartate Amino Transf (AST/SGOT) 21 5-34 U/L Alanine Aminotransferase (ALT/SGPT) 48 0-55 U/L Alkaline Phosphatase 182 H 40-136 U/L Total Protein 8.0 6.4-8.2 GM/DL Albumin 3.8 3.2-4.5 GM/DL OB - Assessment/Plan/Diagnosis Assessment Assessment: induction of labor Admission Dx 36 weeks gestation Intrahepatic cholestasis of Induction of labor Admission Status: Inpatient Order (span 2 midnights) Reason for Inpatient Admission: Induction, labor and delivery and course Plan Plan: Induction Induction Method: per Misoprostol Protocol AKIRA LI MD Aug 30, 2018 08:45
[2018-08-30] MEDS ORDERED: LIDOCAINE/EPI 2% 1:200,00 (XYLOCAINE) 10 ML VIAL ONE (08:54)
[2018-08-30] MEDS ORDERED: OXYTOCIN/NORMAL SALINE 500 ML IV ONE (08:54)
[2018-08-30] MEDS: OXYTOCIN/NORMAL SALINE 500 ML IV SCH (09:00)
[2018-08-30] MEDS: CATHETER FLUSH 10 ML SYR IV SCH ×2 (09:08→17:55)
[2018-08-30] MEDS ORDERED: LIDOCAINE/EPI 1%-1:200,000 (XYLOCAINE) 10 ML VIAL INJ ONE (09:15)
[2018-08-30] MEDS ORDERED: MINERAL OIL CONCENTRATE 99.9% 15 ML UDC PO ONE (09:15)
[2018-08-30] MEDS ORDERED: fentaNYL INJECTION 100 MCG/2 ML AMP ONE ×2 (11:11→18:18)
[2018-08-30] MEDS: fentaNYL INJECTION 100 MCG/2 ML AMP IVP PRN ×2 (11:18→15:57)
[2018-08-30] MEDS ORDERED: LACTATED RINGERS 1,000 ML IV ONE ×3 (18:00→19:06)
[2018-08-30] MEDS ORDERED: LACTATED RINGERS 1,000 ML IV SCH (18:00)
[2018-08-30] MEDS ORDERED: SUFENTA 0.6MCG/ML BUPIVA 0.125 100 ML ONE (18:21)
[2018-08-30] MEDS: EPIDURAL (SUFENTA 0.6MCG/ML BUPIVA 0.125%) 100 ML BAG EPI PRN (18:25)
--- NOTE | 2018-08-30 18:25 | NUR ---
DAR JIMENEZ here for epidural placement. Procedure explained, consent reviewed and signed by anesthesia. Questions answered to patient's satisfaction. Time out taken to verify correct patient/procedure. Patient up to side of bed, assisted into sitting position. Betadine prep done x3 and sterile drape applied. Local done, see anesthesia record. Test dose given, see anesthesia record for drug and dosage. Epidural catheter secured in place. Epidural placement complete. Assisted back into bed, monitors adjusted. Epidural dosed, see anesthesia record. Epidural of Sufenta/Bupvicaine @__12____cc/hr stated per pump. Patient tolerated procedure well.
--- NOTE | 2018-08-30 18:48 | Labor Progress Note ---
Labor Progress Note Labor Progress Note Date Seen by Provider: Aug 30, 2018 Time Seen by Provider: 17:35 Subjective: Pt having much more pain with contractions as well as complaining of lower right side pain that persists between contractions. Objective: Cervical exam: 6.5/80/-1 Consistency: soft Position: anterior Presentation: vertex heart tones: 160 beats per minute, moderate variability, recurrent variable decelerations Tocometer: 4-5 ctx/10 minutes Assessment/Plan: Kala Schafer is a 28 /Para 1 / 0,Gestational Age (wks)36 here for IOL for intrahepatic cholestasis, having recurrent variable decelerations with good variability and acels at time of exam. IUPC placed and amnioinfusion started at 500 cc bolus over 60 minutes, with plan to decrease rate to 200 cc/hr and Dr. Canas (Hobbing Machine Operator continuing education director) notified, however shortly after placement, uterine baseline tone up to 40 from 20, so halted infusion. Due to her right sided pain, will check STAT CMP and CBC. Her BP and heart rate are normal, will monitor closely. AROM done about 1430 with clear fluid Holding pitocin Anesthesia: requesting epidural Category II heart rate tracing- position changes done, bolus done, oxygen in place, monitor very closely, discussed with pt and the need to consider if persistent category II without cervical change or change in status. Vitals - Labs Vital Signs - I&O Vital Signs Date Time Temp Pulse Resp B/P (MAP) Pulse Ox O2 Delivery O2 Flow Rate FiO2 08/30/18 11:40 98.4 72 16 123/78 (93) Room Air 08/30/18 10:40 82 16 125/82 (96) Room Air 08/30/18 09:37 76 16 110/91 (97) Room Air 08/30/18 09:00 85 16 116/73 (87) Room Air 08/30/18 08:50 98.2 88 18 120/73 (89) Room Air 08/30/18 07:35 78 16 111/67 (82) Room Air 08/30/18 05:35 81 16 108/67 (81) Room Air 08/30/18 04:35 98.1 71 16 105/57 (73) Room Air 08/30/18 03:35 87 16 112/68 (83) Room Air 08/30/18 02:35 77 16 110/57 (74) Room Air 08/30/18 01:35 86 16 109/55 (73) Room Air 08/30/18 00:40 98.5 86 18 102/59 (73) Room Air 08/29/18 23:38 86 18 100/56 (71) Room Air 08/29/18 22:36 96 18 110/67 (81) Room Air 08/29/18 21:35 101 18 114/70 (85) Room Air 08/29/18 19:25 98.2 115 18 119/81 (94) Room Air I & O 08/30/18 07:00 Intake Total 2600 ml Balance 2600 ml Labs Laboratory Tests 08/29/18 19:10: Urine Color YELLOW, Urine Clarity CLEAR, Urine pH 6.5, Urine Specific [place] 1.010L, Urine Protein NEGATIVE, Urine Glucose (UA) NEGATIVE, Urine Ketones NEGATIVE, Urine Nitrite NEGATIVE, Urine Bilirubin NEGATIVE, Urine Urobilinogen NORMAL, Urine Leukocyte Esterase NEGATIVE, Urine RBC (Auto) NEGATIVE, Urine RBC NONE, Urine WBC RARE, Urine Squamous Epithelial Cells 2-5, Urine Crystals NONE, Urine Bacteria FEWH, Urine Casts NONE, Urine Mucus SMALLH, Urine Culture Indicated NO 08/29/18 19:30: White Blood Count 14.4H, Red Blood Count 3.96L, Hemoglobin 10.8L, Hematocrit 33L , Mean Corpuscular Volume 83, Mean Corpuscular Hemoglobin 27, Mean Corpuscular Hemoglobin Concent 33, Red Cell Distribution Width 18.8H, Platelet Count 389, Mean Platelet Volume 8.7, Neutrophils (%) (Auto) 75, Lymphocytes (%) (Auto) 17, Monocytes (%) (Auto) 7, Eosinophils (%) (Auto) 1, Basophils (%) (Auto) 0, Neutrophils # (Auto) 10.9H, Lymphocytes # (Auto) 2.5, Monocytes # (Auto) 1.0, Eosinophils # (Auto) 0.1, Basophils # (Auto) 0.0 08/29/18 19:40: Sodium Level 136, Potassium Level 3.5L, Chloride Level 105, Carbon Dioxide Level 18L, Anion Gap 13, Blood Urea Nitrogen 8, Creatinine 0.62, Estimat Glomerular Filtration Rate > 60, BUN/Creatinine Ratio 13, Glucose Level 109H, Calcium Level 9.7, Corrected Calcium 9.9, Total Bilirubin 0.2, Aspartate Amino Transf (AST/SGOT) 21, Alanine Aminotransferase (ALT/SGPT) 48, Alkaline Phosphatase 182H , Total Protein 8.0, Albumin 3.8 AKIRA LI MD Aug 30, 2018 18:48
[2018-08-30] MEDS ORDERED: LIDOCAINE PF 2% 5 ML (XYLOCAINE) VIAL ONE (18:59)
[2018-08-30] MEDS ORDERED: BUPIVACAINE 0.25% 30 ML (SENSORCAINE) VIAL ONE (18:59)
[2018-08-30 19:11] LABS: HEMOGLOBIN 11.6 G/DL (11.5-16.0); MEAN PLATELET VOLUME 8.7 FL (7.4-10.4); RED CELL DISTRIBUTION WIDTH 18.9 % (10.0-14.5)
[2018-08-30] MEDS ORDERED: NALOXONE 0.4 MG/ML 1 ML (NARCAN) VIAL IV PRN (19:15)
[2018-08-30] MEDS ORDERED: ONDANSETRON 4 MG/2 ML (SDV) Z0FRAN IV PRN (19:15)
[2018-08-30 19:26] LABS: ALANINE AMINOTRANSFERASE 38 U/L (0-55); ALBUMIN 3.4 GM/DL (3.2-4.5); ALKALINE PHOSPHATASE 177 U/L (40-136); BILIRUBIN,TOTAL 0.2 MG/DL (0.1-1.0); BUN/CREATININE RATIO 5; CALCIUM 9.3 MG/DL (8.5-10.1); CARBON DIOXIDE 19 MMOL/L (21-32); CHLORIDE 106 MMOL/L (98-107); CREATININE SERUM 0.61 MG/DL (0.60-1.30); GFR ESTIMATED > 60; GLUCOSE 99 MG/DL (70-105); POTASSIUM 3.3 MMOL/L (3.6-5.0); SODIUM 137 MMOL/L (135-145)
[2018-08-30] MEDS ORDERED: METOCLOPRAMIDE INJ 10 MG/2 ML (REGLAN) ONE (22:02)
[2018-08-30] MEDS ORDERED: FAMOTIDINE 20MG/2ML IV (PEPCID) ONE (22:02)
[2018-08-30] MEDS ORDERED: CITRIC ACID/SOB CIT (BICITRA) 30 ML UDC ONE (22:02)
[2018-08-31] VITALS (32 sets, daily range): BP systolic 94–135; BP diastolic 53–93
[2018-08-31] MEDS: D5 LR IV SOLUTION 1,000 ML IV SCH (01:15)
[2018-08-31] MEDS: EPIDURAL (SUFENTA 0.6MCG/ML BUPIVA 0.125%) 100 ML BAG EPI PRN (01:15)
[2018-08-31] MEDS ORDERED: LIDOCAINE/EPI 1%-1:100,000 (XYLOCAINE) 20ML ONE (02:49)
[2018-08-31] MEDS: OXYTOCIN/NORMAL SALINE 500 ML IV SCH (05:13)
--- NOTE | 2018-08-31 05:30 | OB Labor & Delivery Record ---
Vag Delivery Note Vag Delivery Note Date of Delivery: 08/31/18 Preoperative Diagnosis: Kala Schafer is a 28 /Para 1 / 0,Gestational Age (wks)36with 2 days Postoperative Diagnosis: Same Surgeon: AKIRA LI Anesthesia: Epidural Delivery Type: Vacuum assisted vaginal Findings: Viable male , apgars 8/8, weight 5#7 Lacerations: bilateral vaginal wall abrasions, second degree perineal laceration Intact placenta with 3 vessel cord. No nuchal cord, body cord or shoulder dystocia Estimated Blood Loss: 200 ml Complications: None Condition: Stable Description of Procedure: The patient is a 28 year old female who presented for induction of labor due to intrahepatic cholestasis. She was admitted and informed consent was obtained. Her labor course was remarkable for prolonged active phase. She progressed to complete dilatation and began to push. She was then set up for delivery. Infant had recurrent deep variable decelerations with increasingly prolonged time to recovery, although with rapid positive response to scalp stim. Given recurrent bradycardia and minimal progres mikayla despite being at +3 station, obtained consent from mother and applied MityVac vacuum at 0433, checked entire circumference to ensure no maternal tissue entrapment and that no edge was on a fontanelle. With the next contraction at 0434, suction applied to green zone and steady traction applied with maternal pushing effort. After 6 push/pulls, the 's head was delivered atraumatically in the OA position at 0437. The shoulders and remainder of the infant's body were then delivered without difficulty. Upon delivery, the infant was vigorous and crying and placed on maternal abdomen. After a delay, the cord was doubly clamped and cut and the infant was handed off to the pediatric staff. An intact placenta with 3-vessel cord delivered via Reji and there was found to be minimal bleeding.~ Vigorous fundal massage was performed and the fundus was found to be firm. IV oxytocin was given. Examination of the vagina and perineum revealed a second degree perineal laceration repaired in the usual fashion with 3-0 vicryl rapide suture. Following the repair, sponge, instrument and needle counts were correct. Mom was in stable condition in maternal suite and stable, transferred to nursery for additional respiratory support. Vitals - Labs Labs Laboratory Tests 08/30/18 19:03: White Blood Count 21.0H, Red Blood Count 4.15L, Hemoglobin 11.6, Hematocrit 35, Mean Corpuscular Volume 84, Mean Corpuscular Hemoglobin 28, Mean Corpuscular Hemoglobin Concent 33, Red Cell Distribution Width 18.9H, Platelet Count 334, Mean Platelet Volume 8.7, Sodium Level 137, Potassium Level 3.3L, Chloride Level 106, Carbon Dioxide Level 19L, Anion Gap 12, Blood Urea Nitrogen 3L, Creatinine 0.61, Estimat Glomerular Filtration Rate > 60, BUN/Creatinine Ratio 5, Glucose Level 99, Calcium Level 9.3, Corrected Calcium 9.8, Total Bilirubin 0.2, Aspartate Amino Transf (AST/SGOT) 17, Alanine Aminotransferase (ALT/SGPT) 38, Alkaline Phosphatase 177H, Total Protein 7.0, Albumin 3.4 AKIRA LI MD Aug 31, 2018 05:30
--- NOTE | 2018-08-31 06:34 | NUR ---
Epidural cath removed, tip in tact, site wnl and left o/a.
--- NOTE | 2018-08-31 07:30 | NUR ---
SLEEPING WHEN ENTERED ROOM. SPOUSE AT BEDSIDE SLEEPING IN RECLINER.
--- NOTE | 2018-08-31 08:00 | NUR ---
ASSESSMENT COMPLETED. VSS. PREPARING TO GO TO PP ROOM. ASSISTED UP TO THE BATHROOM. + VOID. RADHA CARE PERFORMED WITH DERMA PLAST SPRAY AND TUCKS APPLIED. VERY SWOLLEN LABIA AND SUTURE LINE. FF U/2. VAG FLOW LT/MOD RUBRA. ABLE TO BEAR WEIGHT WITHOUT PROBLEMS. BRUSHING TEETH AT SINK AFTER RADHA CARE. GOWN CHANGE. DENIES PAIN WHEN ASKED BUT OBVIOUS TENDERNESS OF PERINEUM PER FACIAL EXPRESSION.
[2018-08-31] MEDS ORDERED: WITCH HAZEL(TUCKS) 40 EA JAR ONE (08:14)
[2018-08-31] MEDS ORDERED: BENZOCAINE/MENTHOL (DERMOPLAST) 56 ML CAN TP ONE (08:14)
--- NOTE | 2018-08-31 08:45 | NUR ---
TO PP ROOM 310 VIA W/C IN STABLE CONDITION. ORIENTED TO SURROUNDINGS, CALL LIGHT OPERATION, ROOM SERVICE PROCEDURE, AND INFORMATION PAPERS WITH STATED UNDERSTANDING. WANTING TO GO SEE IN NURSERY.
--- NOTE | 2018-08-31 09:00 | NUR ---
TO NURSERY VIA W/C ACC BY THIS RN AND SPOUSE TO SEE .
[2018-08-31] MEDS ORDERED: DIBUCAINE (NUPERCAINAL) 1% OINT 30 GM ONE (09:02)
[2018-08-31] MEDS ORDERED: OXYTOCIN/NORMAL SALINE 500 ML IV SCH (09:14)
[2018-08-31] MEDS ORDERED: WITCH HAZEL(TUCKS) 40 EA JAR TOP PRN (09:15)
[2018-08-31] MEDS ORDERED: BENZOCAINE/MENTHOL (DERMOPLAST) 56 ML CAN TP PRN (09:15)
--- NOTE | 2018-08-31 09:50 | NUR ---
RETURNED TO ROOM VIA W/C. ORDERING SOME BREAKFAST. ICE PACK TO PERINEUM.
[2018-08-31] MEDS: IBUPROFEN 600 MG (MOTRIN) TAB PO SCH ×4 (10:04→23:56)
[2018-08-31] MEDS ORDERED: DOCUSATE SODIUM 100 MG (COLACE) CAP PO ONE (10:09)
[2018-08-31] MEDS ORDERED: PRENATAL VITAMIN 1 EA TAB PO ONE (10:09)
[2018-08-31] MEDS ORDERED: FERROUS SULF 325 MG (IRON) TAB PO ONE (10:09)
[2018-08-31] MEDS ORDERED: DIBUCAINE (NUPERCAINAL) 1% OINT 30 GM TOP PRN (10:15)
[2018-08-31] MEDS: FERROUS SULF 325 MG (IRON) TAB PO SCH (10:15)
[2018-08-31] MEDS: DOCUSATE SODIUM 100 MG (COLACE) CAP PO SCH ×2 (10:16→23:56)
[2018-08-31] MEDS: PRENATAL VITAMIN 1 EA TAB PO SCH (10:16)
--- NOTE | 2018-08-31 12:00 | NUR ---
FAMILY AT BEDSIDE. VSS. FF U/2. VAG FLOW LT RUBRA.
[2018-08-31] MEDS ORDERED: CATHETER FLUSH 10 ML SYR IV SCH (14:00)
[2018-08-31] MEDS ORDERED: ACETAMINOPHEN 500 MG TAB (TYLENOL) PO SCH (14:00)
--- NOTE | 2018-08-31 14:00 | NUR ---
RESTING IN BED. VOIDING WITHOUT PROBLEMS.
--- NOTE | 2018-08-31 16:00 | NUR ---
PT AND SPOUSE BOTH SLEEPING SOUNDLY. SPOUSE SNORING. DECISION TO LET THEM SLEEP AT THIS TIME.
--- NOTE | 2018-08-31 17:45 | NUR ---
HAVE CHECKED ON PT 4 TIMES AND HAS BEEN ASLEEP. OPENED EYES THIS TIME WHEN ENTERED ROOM. VSS. IBUPROFEN GIVEN BUT WANTS TO TAKE WITH FOOD. ORDERING FOOD AT THIS TIME. ICE PACK GIVEN AGAIN FOR PERINEUM.
--- NOTE | 2018-08-31 18:10 | NUR ---
FOB TO NURSERY TO SEE .
[2018-09-01 05:22] LABS: BASOPHILS % (AUTO) 0 % (0-10); EOSINOPHILS # (AUTO) 0.2 10^3/uL (0.0-0.3); EOSINOPHILS % (AUTO) 1 % (0-10); HEMATOCRIT 25 % (35-52); LYMPHOCYTES # (AUTO) 2.8 X 10^3 (1.0-4.0); LYMPHOCYTES % (AUTO) 17 % (12-44); MEAN CORPUSCULAR HEMOGLOBIN 27 PG (25-34); MEAN CORPUSCULAR HGB CONC 32 G/DL (32-36); MEAN CORPUSCULAR VOLUME 85 FL (80-99); MEAN PLATELET VOLUME 8.6 FL (7.4-10.4); MONOCYTES # (AUTO) 1.1 X 10^3 (0.0-1.0); MONOCYTES % (AUTO) 7 % (0-12); NEUTROPHILS # (AUTO) 12.2 X 10^3 (1.8-7.8); NEUTROPHILS % (AUTO) 75 % (42-75); PLATELET COUNT 277 10^3/uL (130-400); RED CELL DISTRIBUTION WIDTH 19.2 % (10.0-14.5); WHITE BLOOD COUNT 16.3 10^3/uL (4.3-11.0)
[2018-09-01] MEDS: IBUPROFEN 600 MG (MOTRIN) TAB PO SCH ×3 (06:14→20:12)
[2018-09-01 06:28] VITALS: BP 109/74
[2018-09-01 08:00] VITALS: BP 111/74
--- NOTE | 2018-09-01 08:00 | NUR ---
SLEEPING WHEN ENTERED ROOM. VSS. STATES NO PAIN. C/O DIFFICULTY WALKING TO THE BATHROOM WHEN HER BLADDER IS FULL. WILL DISCUSS WITH AND ANESTHESIA THIS A.M. DOESN'T WANT ANY MEDICATION AT THIS TIME.
--- NOTE | 2018-09-01 10:00 | NUR ---
DR. LI INFORMED OF PT COMPLAINT OF GROIN PAIN WHEN BLADDER FULL AND DIFFICULTY AMBULATING.
--- NOTE | 2018-09-01 11:00 | NUR ---
SHOWERING AT THIS TIME.
[2018-09-01] MEDS: PRENATAL VITAMIN 1 EA TAB PO SCH (11:30)
[2018-09-01] MEDS: DOCUSATE SODIUM 100 MG (COLACE) CAP PO SCH ×2 (11:30→20:11)
[2018-09-01] MEDS: FERROUS SULF 325 MG (IRON) TAB PO SCH (11:30)
--- NOTE | 2018-09-01 12:00 | NUR ---
MOM IN NURSERY TO ATTEMPT TO NURSE .
--- NOTE | 2018-09-01 12:00 | NUR ---
ANESTHESIA INFORMED OF PT'S COMPLAINT OF DIFFICULTY AMBULATING WHEN BLADDER IS FULL.
[2018-09-01 13:29] VITALS: BP 109/71
--- NOTE | 2018-09-01 13:32 | NUR ---
FAMILY AT BEDSIDE. VSS. DENIES PAIN AT THIS TIME.
--- NOTE | 2018-09-01 16:47 | Progress Note (SOAP) ---
Subjective Subjective/Events-last exam Pt doing okay, bleeding decreasing, denies dizziness or shortness of breath. Has difficulty lifting her foot when she has to urinate, but it is fine afterward. Pumped breast milk is very dark brown. Review of Systems Date Seen by Provider: Sep 01, 2018 Time Seen by Provider: 09:10 Objective Exam Last Set of Vital Signs Vital Signs Date Time Temp Pulse Resp B/P (MAP) Pulse Ox O2 Delivery O2 Flow Rate FiO2 09/01/18 13:29 98.3 86 18 109/71 (84) 100 Room Air 08/31/18 03:30 15.00 Capillary Refill : I&O Intake and Output 08/31/18 23:59 Intake Total 1000 ml Balance 1000 ml IV Total 1000 ml General: Alert, No Acute Distress Lungs: Clear to Auscultation, Normal Air Movement Heart: Regular Rate, No Murmurs Neuro: Normal Gait Psych/Mental Status: Mental Status NL Results/Procedures Lab Laboratory Tests 09/01/18 05:10: White Blood Count 16.3H, Red Blood Count 2.92L, Hemoglobin 8.0#L, Hematocrit 25L , Mean Corpuscular Volume 85, Mean Corpuscular Hemoglobin 27, Mean Corpuscular Hemoglobin Concent 32, Red Cell Distribution Width 19.2H, Platelet Count 277, Mean Platelet Volume 8.6, Neutrophils (%) (Auto) 75, Lymphocytes (%) (Auto) 17, Monocytes (%) (Auto) 7, Eosinophils (%) (Auto) 1, Basophils (%) (Auto) 0, Neutrophils # (Auto) 12.2H, Lymphocytes # (Auto) 2.8, Monocytes # (Auto) 1.1H, Eosinophils # (Auto) 0.2, Basophils # (Auto) 0.0 Assessment/Plan Assessment/Plan (1) Status post vacuum-assisted vaginal delivery Status: Acute Assessment & Plan: Routine care (2) anemia Status: Acute Assessment & Plan: Asymptomatic, on iron. (3) Intrahepatic cholestasis of Status: Resolved Assessment & Plan: LFT normalized. Clinical Quality Measures DVT/VTE Risk/Contraindication: Risk Factor Score Per Nursin RFS Level Per Nursing on Admit: 1=Low/No VTE PPX AKIRA LI MD Sep 01, 2018 16:47
[2018-09-01 17:45] VITALS: BP 126/66
--- NOTE | 2018-09-01 18:00 | NUR ---
PUMPING BREASTS. VISITOR AT BEDSIDE. STATES HAS HAD THE GROIN PAIN AGAIN THIS AFTERNOON. RATES PAIN2/10.
--- NOTE | 2018-09-01 19:55 | NUR ---
eating stork meal, denies needs, to ring when finished for vs and meds. see int.
[2018-09-01 20:09] VITALS: BP 121/79
[2018-09-02 02:23] VITALS: BP 125/73
[2018-09-02] MEDS: IBUPROFEN 600 MG (MOTRIN) TAB PO SCH ×3 (02:23→16:41)
[2018-09-02] MEDS: DOCUSATE SODIUM 100 MG (COLACE) CAP PO SCH (07:31)
[2018-09-02] MEDS: PRENATAL VITAMIN 1 EA TAB PO SCH (07:31)
[2018-09-02 07:53] VITALS: BP 118/71
--- NOTE | 2018-09-02 08:28 | Discharge Summary ---
Diagnosis/Chief Complaint Date of Admission Aug 29, 2018 at 19:01 Date of Discharge September 02, 2018 Admission Diagnosis Admission Diagnosis Intrahepatic cholestasis of 36 weeks gestation Induction of labor Discharge Diagnosis see problem list Problems/Diagnosis: (1) Status post vacuum-assisted vaginal delivery Assessment & Plan: Routine care Status: Acute (2) anemia Assessment & Plan: Asymptomatic, on iron. Status: Acute (3) Intrahepatic cholestasis of Assessment & Plan: LFT normalized. Status: Resolved Resolution Date/Time: 09/01/18 @ 16:47 Chief Complaint/HPI Chief Complaint/HPI 28 yo G1 admitted at 36 weeks for IOL due to intrahepatic cholestasis of . Discharge Summary-Simple/Stand Discharge Physical Examination Allergies: Coded Allergies: No Known Drug Allergies (Unverified , 08/29/18) Vitals & I&Os Vital Sign - Last 12Hours Date Time Temp Pulse Resp B/P (MAP) Pulse Ox O2 Delivery O2 Flow Rate FiO2 09/02/18 07:53 98.2 86 16 118/71 (87) 99 Room Air 08/31/18 03:30 15.00 General Appearance: Alert, No Acute Distress Respiratory: Clear to Auscultation, Normal Air Movement Cardiovascular: Regular Rate, No Murmurs Abdominal: Other (fundus firm below umbilicus) Neuro: Normal Speech Psych/Mental Status: Mental Status NL Hospital Course See final discharge diagnosis. Labs Laboratory Tests Test 09/01/18 05:10 Range/Units White Blood Count 16.3 H 4.3-11.0 10^3/uL Red Blood Count 2.92 L 4.35-5.85 10^6/uL Hemoglobin 8.0 #L 11.5-16.0 G/DL Hematocrit 25 L 35-52 % Mean Corpuscular Volume 85 80-99 FL Mean Corpuscular Hemoglobin 27 25-34 PG Mean Corpuscular Hemoglobin Concent 32 32-36 G/DL Red Cell Distribution Width 19.2 H 10.0-14.5 % Platelet Count 277 130-400 10^3/uL Mean Platelet Volume 8.6 7.4-10.4 FL Neutrophils (%) (Auto) 75 42-75 % Lymphocytes (%) (Auto) 17 12-44 % Monocytes (%) (Auto) 7 0-12 % Eosinophils (%) (Auto) 1 0-10 % Basophils (%) (Auto) 0 0-10 % Neutrophils # (Auto) 12.2 H 1.8-7.8 X 10^3 Lymphocytes # (Auto) 2.8 1.0-4.0 X 10^3 Monocytes # (Auto) 1.1 H 0.0-1.0 X 10^3 Eosinophils # (Auto) 0.2 0.0-0.3 10^3/uL Basophils # (Auto) 0.0 0.0-0.1 10^3/uL Discharge Instructions to patient/family Please see electronic discharge instructions given to patient. Discharge Medications Reviewed and agree with Discharge Medication list on patient's Discharge Instruction sheet Clinical Quality Measures DVT/VTE Risk/Contraindication: Risk Factor Score Per Nursin RFS Level Per Nursing on Admit: 1=Low/No VTE PPX AKIRA LI MD Sep 02, 2018 08:28
[2018-09-02] MEDS ORDERED: IBUP-844 PO (08:29)
--- NOTE | 2018-09-02 08:31 | Discharge Instructions ---
Discharge Inst-Women[facility] Serv Depart Medications New, Converted or Re-Newed RX: Transmitted to Pharmacy New Medications: Ibuprofen (Ibu) 600 Mg Tablet 600 MG PO Q6HR PRN for PAIN-MODERATE, #60 TAB 0 Refills Continued Medications: Ferrous Sulfate (Iron) 325 Mg Tablet 325 MG PO DAILY, TAB Vit No.124/Iron/FA ( Vitamin Tablet) 1 Each Tablet 1 EACH PO DAILY, TAB Discontinued Medications: Ursodiol (Ursodiol) 300 Mg Capsule 300 MG PO TID, CAP Follow Up/Instructions Goal/Follow Up: Follow up with Dr. Wu in 6 weeks for visit. Activity Activity: Activity as Tolerated (avoid strenuous activity x 6 weeks) Nothing Inside Vagina: No Douching, No [place], No Tampons Diet Discharge Diet: Regular Diet Symptoms to Report to : Swelling Increased, Bleeding Excessive, Fever Over 101 Degrees F, Pain/Pressure in Chest, Vaginal Bleeding Increase, Cramps in Feet or Legs, Vaginal Discharge Foul, Dizziness/Fainting, Shortness of Breath For Any Problems or Questions: Contact Your Physician AKIRA WU MD Sep 02, 2018 08:31
[2018-09-02 15:30] VITALS: BP 125/74
== END 2018-09-02 17:00 | disposition home or self-care (01) | DRG 805 ==
LOC: LDRP 19:01
PROVIDERS: ADMIT Family Medicine; ATTEND Family Medicine
PROC: 3E0DXGC Introduction of Other Therapeutic Substance into Mouth and Pharynx, External Approach (ICD-10-PCS; 2018-08-29)
PROC: 10D07Z6 Extraction of Products of Conception, Vacuum, Via Natural or Artificial Opening (ICD-10-PCS; principal; 2018-08-31)
PROC: 0KQM0ZZ Repair Perineum Muscle, Open Approach (ICD-10-PCS; 2018-08-31)
PROC: 3E0E37Z Introduction of Electrolytic and Water Balance Substance into Products of Conception, Percutaneous Approach (ICD-10-PCS; 2018-08-31)
DX: O26.613 Liver and biliary tract disorders in pregnancy, third trimester (principal); K83.1 Obstruction of bile duct; O70.1 Second degree perineal laceration during delivery; O76 Abnormality in fetal heart rate and rhythm complicating labor and delivery; O62.1 Secondary uterine inertia; O90.81 Anemia of the puerperium; Z3A.36 36 weeks gestation of pregnancy; Z37.0 Single live birth
CPT/HCPCS: 36415; 80053; 81000; 85025; 85027; 86850; 86900; 86901